=== PATIENT | male | born 1935 | race Caucasian/White ===

== ENCOUNTER 2016-09-01 08:52 | Emergency (ER) | payer OTHER, MEDICARE ==
[~2016-09-01] VITALS: Ht 172.7 cm; Wt 90.7 kg
[2016-09-01] MEDS ORDERED: GLYBURIDE5 M1 PO ×2 (09:22→09:25)
[2016-09-01] MEDS ORDERED: METOPROLOL SUCC50 M2 PO (09:23)
[2016-09-01] MEDS ORDERED: CO Q-10100 MG PO (09:23)
[2016-09-01] MEDS ORDERED: LANTUS SOL100 UNIT/1 SC ×2 (09:23→09:26)
[2016-09-01] MEDS ORDERED: VITAMIN C1000 M2 PO (09:24)
[2016-09-01] MEDS ORDERED: METFORMIN HCL1000 M1 PO (09:24)
[2016-09-01] MEDS ORDERED: JANUVIA100 M1 PO (09:24)
[2016-09-01] MEDS ORDERED: FINASTERIDE5 M1 PO (09:25)
[2016-09-01] MEDS ORDERED: DAILY MULTIPLE1 EACH PO (09:25)
[2016-09-01] MEDS ORDERED: VITAMIN D1000 UNIT PO (09:25)
[2016-09-01] MEDS ORDERED: ASPIRIN81 M4 PO (09:26)
[2016-09-01] MEDS ORDERED: CRESTOR40 M2 PO (09:26)
[2016-09-01] MEDS ORDERED: AMLODIPINE-OLM1 EAC3 PO (09:27)
[2016-09-01] MEDS ORDERED: DOXAZOSIN MESYLA4 M1 PO (09:27)
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
--- NOTE | 2016-09-01 10:33 | RADIOLOGY REPORT ---
EXAMINATION: XR HIP, RIGHT CLINICAL INFORMATION: Right hip pain. COMPARISON: None TECHNIQUE: AP pelvis and 2 views of right hip. FINDINGS: There is normal symmetry of bilateral hip joints and bilateral SI joints without any fracture or dislocation. No lytic or sclerotic process seen.. The soft tissues are normal. AP and frog-leg views right hip reveals no visible fracture, dislocation or bony abnormality. The soft tissues are normal. IMPRESSION: Normal right hip exam. Unremarkable AP pelvis.
[2016-09-01 10:41] VITALS: BP 168/74
== END 2016-09-01 10:42 ==
LOC: ERH 08:52
DX: S76.011A Strain of muscle, fascia and tendon of right hip, initial encounter (principal); X50.9XXA Other and unspecified overexertion or strenuous movements or postures, initial encounter; Y93.29 Activity, other involving ice and snow; Y92.9 Unspecified place or not applicable
CPT/HCPCS: 73502-RT